=== PATIENT | female | born 1985 | race Hispanic/Latino ===

== ENCOUNTER 2025-06-28 10:28 | Outpatient (CLI) | payer BC | END 2025-06-28 10:29 | disposition home or self-care (01) | LOC: CSHMRI 10:28 | PROVIDERS: ATTEND Psychiatry & Neurology Neurology | DX: G43.019 Migraine without aura, intractable, without status migrainosus (principal); H47.093 Other disorders of optic nerve, not elsewhere classified, bilateral | CPT/HCPCS: 70553; 76376 ==